=== PATIENT | female | born 1935 | race Caucasian/White ===

== ENCOUNTER 2022-05-03 12:59 | Emergency (ER) | payer MEDICARE ==
[~2022-05-03] VITALS: Ht 162.6 cm; Wt 69.0 kg
[2022-05-03 14:07] VITALS: BP 151/78
[2022-05-03] MEDS ORDERED: DOXY-CAPS100 MG PO (14:35)
[2022-05-03 15:00] VITALS: BP 146/82
[2022-05-03 15:08] VITALS: BP 146/82
== END 2022-05-03 15:09 | disposition home or self-care (01) ==
LOC: ED 12:59
DX: S81.812A Laceration without foreign body, left lower leg, initial encounter (principal); W01.0XXA Fall on same level from slipping, tripping and stumbling without subsequent striking against object, initial encounter